=== PATIENT | female | born 2000 | race Caucasian/White ===

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

== ENCOUNTER 2021-05-05 19:33 | Emergency (ER) | payer MEDICAID ==
[~2021-05-05] VITALS: Ht 160 cm; Wt 45.0 kg
[2021-05-05 19:35] VITALS: BP 117/74
== END 2021-05-06 02:00 | disposition left against medical advice (07) ==
LOC: ER 19:33
DX: Z53.21 Procedure and treatment not carried out due to patient leaving prior to being seen by health care provider (principal)

== ENCOUNTER 2024-06-05 15:58 | Emergency (ER) | payer MEDICAID, OTHER ==
[~2024-06-05] VITALS: Ht 162.6 cm; Wt 55.7 kg
[2024-06-05 16:04] VITALS: BP 114/55; TEMP 37; O2SAT 100
[2024-06-05 16:05] VITALS: PULSE 111; RESP 18; O2SAT 99
== END 2024-06-05 18:36 | disposition left against medical advice (07) ==
LOC: ER 15:58
DX: R10.9 Unspecified abdominal pain (principal); R11.2 Nausea with vomiting, unspecified; Z53.21 Procedure and treatment not carried out due to patient leaving prior to being seen by health care provider

== ENCOUNTER → 2025-02-02 | Emergency (ER) | payer MEDICAID, OTHER ==
[~2025-02-02] VITALS: Ht 160 cm; Wt 50.0 kg
[2025-02-02 22:32] VITALS: BP 117/84; PULSE 74; RESP 18; TEMP 97.6; O2SAT 100
== END ==
LOC: ER 22:27
DX: R51.9 Headache, unspecified (principal)
CPT/HCPCS: 99281